=== PATIENT | female | born 1980 | race Caucasian/White ===

== ENCOUNTER 2016-08-09 12:28 | Emergency (ER) | payer OTHER ==
[2016-08-09 13:29] VITALS: BP 140/99
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
== END 2016-08-09 13:20 | disposition home or self-care (01) ==
LOC: ED 12:28
DX: T75.4XXA Electrocution, initial encounter (principal); W86.8XXA Exposure to other electric current, initial encounter; Y93.89 Activity, other specified; Y92.89 Other specified places as the place of occurrence of the external cause; Y99.0 Civilian activity done for income or pay
CPT/HCPCS: 99283

== ENCOUNTER 2016-11-09 12:27 | Emergency (ER) | payer SELFPAY ==
--- NOTE | 2016-11-09 12:44 | ED Physician Documentation ---
General Adult - HISTORIAN Historian: patient - HPI Stated Complaint: dental pain Chief Complaint: General Adult Onset: days ago (1) Timing: still present Severity: moderate Further Comments: yes (Pt is a 36 yo female with dental pain. Pt fractured a lower R molar. Pt has appt to see dentist next week.) - ROS CONST: no problems EYES/ENT: other (dental pain) CVS/RESP: none GI/: none MS/SKIN/LYMPH: none - PAST HX Past History: hypertension Allergies/Adverse Reactions: Allergies Allergy/AdvReac Type Severity Reaction Status Date / Time No Known Allergies Allergy Verified 11/09/16 12:41 Home Medications: Ambulatory Orders Medication Instructions Recorded Levothyroxine Sodium [Synthroid] 175 mcg PO DAILY 04/14/15 Gabapentin [Neurontin] 300 mg PO BID 11/09/16 Gabapentin [Neurontin] 600 mg PO HS 11/09/16 Hydrochlorothiazide [Hydrodiuril] 25 mg PO DAILY 11/09/16 - SOCIAL HX Smoking History: cigarettes - FAMILY HX Family History: No - VITAL SIGNS Vital Signs: Vital Signs Temp Pulse Resp BP Pulse Ox 140/99 08/09/16 13:28 - REVIEWED ASSESSMENTS Nursing Assessment Reviewed: Yes Vitals Reviewed: Yes Progress - Progress Progress: Rx Penicillin VK 500 mg. Take one every 8 hrs for 10 days. Rx [place] (5/325). Take one or two tablets by mouth every 4 to 6 hrs as needed for moderate to severe pain. Follow up with dentist as soon as possible. General Adult Physical Exam - PHYSICAL EXAM GENERAL APPEARANCE: mild distress EENT: pharynx normal, other (fx molar R lower jaw; tenderness) NECK: normal inspection RESPIRATORY: no resp distress BACK: normal inspection SKIN: warm/dry, normal color EXTREMITIES: non-tender, normal range of motion, no evidence of injury NEURO: oriented X3, motor nml, sensation nml Discharge Clincal Impression: dental pain Referrals: Prashant Carlos MD [Primary Care Provider] - Home Medications: Ambulatory Orders Levothyroxine Sodium [Synthroid] 175 mcg PO DAILY 04/14/15 Gabapentin [Neurontin] 300 mg PO BID 11/09/16 Gabapentin [Neurontin] 600 mg PO HS 11/09/16 Hydrochlorothiazide [Hydrodiuril] 25 mg PO DAILY 11/09/16 Condition: Good Disposition: 01 HOME, SELF-CARE Decision to Admit: NO Decision Time: 13:12
[2016-11-09 13:09] VITALS: BP 148/118
== END 2016-11-09 13:00 | disposition home or self-care (01) ==
LOC: ED 12:27
DX: K08.89 Other specified disorders of teeth and supporting structures (principal)
CPT/HCPCS: 99283

== ENCOUNTER 2017-12-24 16:38 | Emergency (ER) | payer SELFPAY ==
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
[2017-12-24 18:30] VITALS: BP 179/111
[2017-12-24] MEDS: KETOROLAC TROMETHAMINE 60 MG/2 ML VIAL IM ONE (18:32)
[2017-12-24] MEDS: CloNIDine HCL 0.1 MG TABLET PO ONE (18:32)
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
== END 2017-12-24 18:28 | disposition home or self-care (01) ==
LOC: ED 16:38
DX: M54.2 Cervicalgia (principal)
CPT/HCPCS: 72040; 99283

== ENCOUNTER 2018-04-12 16:36 | Emergency (ER) | payer SELFPAY ==
--- NOTE | 2018-04-12 17:05 | ED Physician Documentation ---
General Adult - HISTORIAN Historian: patient - HPI Stated Complaint: Tooth pain Chief Complaint: General Adult Onset: days ago (4) Timing: still present Severity: moderate Further Comments: yes (Pt is a 38 yo female with dental pain. Pt has had toothache for 4 days. It is keeping her up at night. Pain radiates to R ear. Pain is in both upper and lower R jaw.) - ROS CONST: no problems EYES/ENT: other (dental pain) CVS/RESP: none GI/: none MS/SKIN/LYMPH: none - PAST HX Past History: none Allergies/Adverse Reactions: Allergies Allergy/AdvReac Type Severity Reaction Status Date / Time No Known Allergies Allergy Verified 12/24/17 16:55 Home Medications: Ambulatory Orders Medication Instructions Recorded NK 12/24/17 - SOCIAL HX Smoking History: cigarettes - FAMILY HX Family History: No - VITAL SIGNS Vital Signs: Vital Signs Temp Pulse Resp BP Pulse Ox 98.2 F 110 H 16 145/115 99 04/12/18 16:56 04/12/18 16:56 04/12/18 16:56 04/12/18 16:56 04/12/18 16:56 - REVIEWED ASSESSMENTS Nursing Assessment Reviewed: Yes Vitals Reviewed: Yes Progress - Progress Progress: Rx Penicillin VK 500 mg. Take one every 8 hours for 10 days. One refill. Rx [place] (5/325). Take one or two tablets by mouth every 4 to 6 hours as needed for moderate to severe pain. General Adult Physical Exam - PHYSICAL EXAM GENERAL APPEARANCE: moderate distress EENT: pharynx normal, other (poor dentition, caries in R upper and lower molars) NECK: normal inspection, supple, lymphadenopathy (mild) RESPIRATORY: no resp distress, chest non-tender, breath sounds normal CVS: reg rate & rhythm, heart sounds normal BACK: normal inspection, no CVA tenderness SKIN: warm/dry, normal color EXTREMITIES: non-tender, normal range of motion, no evidence of injury NEURO: oriented X3, motor nml, sensation nml Discharge Clincal Impression: Pain, dental Referrals: Christina Bains FNP [Primary Care Provider] - Condition: Stable Disposition: HOME, SELF-CARE Decision to Admit: NO Decision Time: 17:15
[2018-04-12] MEDS ORDERED: HYDROcodone /APAP 5/325 1 EACH TABLET PO ONE (17:32)
[2018-04-12 19:13] VITALS: BP 134/103
== END 2018-04-12 18:48 | disposition home or self-care (01) ==
LOC: ED 16:36
DX: K08.89 Other specified disorders of teeth and supporting structures (principal); Z72.0 Tobacco use
CPT/HCPCS: 99281; 99282; A9270

== ENCOUNTER 2018-05-06 18:06 | Emergency (ER) | payer SELFPAY ==
[2018-05-06] MEDS ORDERED: ASPIRIN 81 MG CHEW TAB PO ONE ×2 (18:16→18:20)
[2018-05-06] MEDS ORDERED: METOPROLOL TARTRATE 5 MG/5 ML VIAL IV ONE ×2 (18:20→20:43)
[2018-05-06 18:40] LABS: MEAN CORPUSCULAR HEMOGLOBIN 32.8 pg (28.0-34.0)
[2018-05-06 18:41] LABS: BASOPHILS % 0.7 (0.0-1.5); EOSINOPHILS % 3.8 % (0.0-6.8); MONOCYTES % 7.3 % (0.0-11.0); NEUTROPHILS # 7.1 # k/uL (1.4-7.7)
[2018-05-06 18:44] LABS: eGFR (Non-African) > 60
[2018-05-06] MEDS ORDERED: 0.9 % SODIUM CHLORIDE 1,000 ML IV ONE ×3 (18:47→18:48)
--- NOTE | 2018-05-06 18:55 | Diagnostic Imaging Report ---
YANELY SMITH (SALON PROFESSIONAL) - ER [facility] [address] [facility] [address] [place], [place]. [address] Report Submission Date: May 06, 2018 6:54:04 PM DENTAL TECH Patient Study Name: REYMUNDO ROOT Date: May 06, 2018 6:36:43 PM DENTAL TECH Modality Type: DX Gender: F Description: CHEST 2VIEW : 82 Institution: [facility] Physician: YANELY SMITH (SALON PROFESSIONAL) - ER CHEST 2VIEW CLINICAL HISTORY: chest pain, dizziness, fever x 3-4 days. current 1 ppd smoker. pt denies chance of and was shielded in xray room for exam. (Hx) COMPARISON: None FINDINGS: A granuloma is noted in the right lower lobe. There is no focal consolidation, pleural effusion, or pneumothorax. The cardiomediastinal silhouette is normal. The visible bony thorax is intact. IMPRESSION: No acute pulmonary process. Electronically signed on May 06, 2018 6:54:04 PM DENTAL TECH by: Dereck AYERS
[2018-05-06] MEDS ORDERED: hydrALAZINE HCL 20 MG/1 ML IVP ONE ×2 (18:59→19:26)
[2018-05-06] MEDS ORDERED: LORazepam 2 MG/ML VIAL IV ONE (20:31)
--- NOTE | 2018-05-06 20:34 | ED Physician Documentation ---
General Adult - HISTORIAN Historian: patient - HPI Stated Complaint: Chest Pain Chief Complaint: General Adult Further Comments: yes (38 year old female patient presents with complaint of chest pain which has been "going on all day" and intermittently the past 2 days; patient denies SOB, N/V or diaphoresis. States she does not take her antihypertensive medications, has been off of them "a long time". Reports not taking her thyroid medication as well. Reports having multiple missing teeth, "I need to have them pulled". BP 177/124 on arrival with HR 110) - ROS CONST: no problems EYES/ENT: sore throat, nasal drainage CVS/RESP: chest pain GI/: none MS/SKIN/LYMPH: other (neck pain) NEURO/PSYCH: headache - PAST HX Past History: hypertension, other (hypothyroidism) Allergies/Adverse Reactions: Allergies Allergy/AdvReac Type Severity Reaction Status Date / Time No Known Allergies Allergy Verified 05/06/18 18:24 Home Medications: Ambulatory Orders Medication Instructions Recorded NK 12/24/17 - SOCIAL HX Smoking History: cigarettes - FAMILY HX Family History: No - VITAL SIGNS Vital Signs: Vital Signs Temp Pulse Resp BP Pulse Ox 98.6 F 100 H 22 177/124 100 05/06/18 18:10 05/06/18 19:15 05/06/18 18:10 05/06/18 18:31 05/06/18 19:14 - REVIEWED ASSESSMENTS Nursing Assessment Reviewed: Yes Vitals Reviewed: Yes Progress - Progress Progress: BP down to 141/97 after a total of Hylazine 20mg, Lopressor 10 mg IV and ativan 1 mg. Patient cannot recall what BP or thyroid medication she is suppose to take. Reports she took her last hydrocodone at 1400; UDS is positive for marijuana, hydrocodone and opiates. Lab and EKG reviewed with patient; recommend transfer to higher level of care for further evaluation and treatment of hypertension. Patient prefers [facility]. Call to [facility] - patient accepted by Dr Dewey ED Results Lab/Radiology - Lab Results Lab Results: Lab Results 05/06/18 05/06/18 05/06/18 18:15 18:15 18:15 WBC 10.90 K/ul K/ul (4.00-12.00) RBC 3.75 M/ul L M/ul (3.90-5.20) Hgb 12.3 g/dL g/dL (12.0-16.0) Hct 36.8 % % (34.5-46.5) MCV 98.0 fl fl (80.0-100.0) MCH 32.8 pg pg (28.0-34.0) MCHC 33.4 g/dL g/dL (30.0-36.0) RDW 18.0 % H % (11.3-14.3) Plt Count 385 K/mm3 K/mm3 (130-400) Neut % (Auto) 64.7 % % (39.0-79.0) Lymph % (Auto) 23.5 % % (16.0-50.0) [place] % (Auto) 7.3 % % (0.0-11.0) Eos % (Auto) 3.8 % % (0.0-6.8) Baso % (Auto) 0.7 (0.0-1.5) Neut # (Auto) 7.1 # k/uL # k/uL (1.4-7.7) Lymph # (Auto) 2.6 # k/uL # k/uL (0.6-4.0) [place] # (Auto) 0.8 # k/uL # k/uL (0.0-0.9) Eos # (Auto) 0.4 # k/uL # k/uL (0.0-0.6) Baso # (Auto) 0.1 # k/uL # k/uL (0.0-0.5) Sodium 137 mmol/L mmol/L (136-145) Potassium 3.6 mmol/L mmol/L (3.5-5.1) Chloride 99 mmol/L mmol/L (98-107) Carbon Dioxide 28 mmol/L mmol/L (22-30) BUN 11 mg/dL mg/dL (7-17) Creatinine 1.12 mg/dL H mg/dL (0.52-1.04) Estimated Creat Clear 83 Est GFR ( Amer) > 60 (60 - ) Est GFR (Non-Af Amer) > 60 (60 - ) Glucose 93 mg/dL mg/dL (74-106) Calcium 9.2 mg/dL mg/dL (8.4-10.2) Total Bilirubin 0.4 mg/dL mg/dL (0.2-1.3) AST 59 U/L H U/L (15-46) ALT 29 U/L U/L (13-69) Alkaline Phosphatase 67 U/L U/L (38-126) Troponin I < 0.03 ng/mL L ng/mL (0.03-0.06) Total Protein 7.5 g/dL g/dL (6.3-8.2) Albumin 4.9 g/dL g/dL (3.5-5.0) - Radiology Radiology Impressions: CT BRAIN W/O CONTRAST CLINICAL HISTORY: HEADACHE X3 WEEKS TECHNIQUE: CT of the head was performed without contrast according to standard protocol. COMPARISON: None FINDINGS: No acute intra- or extra-axial fluid collections are identified. The ventricles are of normal size, shape, and morphology. The basilar cisterns are patent. No mass effect or midline shift is seen. The fontanez-white matter differentiation is normal. The visible portions of the orbits, paranasal sinuses, and mastoids appear normal. No acute fracture is identified. IMPRESSION: No acute intracranial process. Electronically signed on May 06, 2018 8:08:43 PM [employer] by: Dereck Cosme CHEST 2VIEW CLINICAL HISTORY: chest pain, dizziness, fever x 3-4 days. current 1 ppd smoker. pt denies chance of and was shielded in xray room for exam. (Hx) COMPARISON: None FINDINGS: A granuloma is noted in the right lower lobe. There is no focal consolidation, pleural effusion, or pneumothorax. The cardiomediastinal silhouette is normal. The visible bony thorax is intact. IMPRESSION: No acute pulmonary process. Electronically signed on May 06, 2018 6:54:04 PM [employer] by: Dereck Cosme - Orders Orders: ED Orders Category Date Time Status Continuous EKG monitoring Q30M Care 05/06/18 18:15 Active Continuous Pulse Oximetry Q30M Care 05/06/18 18:[address] IV Lock 1T Care 05/06/18 18:14 Active CHEST 2VIEW [RAD] Stat Exams 05/06/18 18:[address] BRAIN W/O CONTRAST Stat Exams 05/06/18 Taken CBC/PLATELET/DIFF Stat Lab 05/06/18 18:15 Completed CMP Stat Lab 05/06/18 18:15 Completed TROPONIN I (cTnI) Stat Lab 02/25/19 18:15 Completed UA W/MICRO IF INDICATED Stat Lab 05/06/18 18:14 Ordered URINE HCG Stat Lab 05/06/18 19:29 Ordered Urine drug screen [DRUG SCREEN URINE MEDICAL ONLY] Stat Lab 05/06/18 18:21 Ordered 0.9 % Sodium Chloride [Normal Saline] 1,000 ml Med 05/06/18 18:47 Discontinued IV .STK-MED 0.9 % Sodium Chloride [Normal Saline] 1,000 ml Med 05/06/18 18:47 Discontinued IV NOW 0.9 % Sodium Chloride [Normal Saline] 1,000 ml Med 05/06/18 18:48 Discontinued IV NOW Aspirin [Rhoda] Med 05/06/18 18:16 Discontinued 324 mg PO NOW ONE Aspirin [Rhoda] Med 05/06/18 18:20 Discontinued 324 mg PO NOW ONE LORazepam [Ativan] Med 05/06/18 20:31 Once 1 mg IV NOW ONE Metoprolol Tartrate [Lopressor] Med 05/06/18 18:20 Discontinued 5 mg IV NOW ONE hydrALAZINE HCL [Apresoline] Med 05/06/18 18:59 Discontinued 10 mg IVP NOW ONE hydrALAZINE HCL [Apresoline] Med 05/06/18 19:26 Discontinued 10 mg IVP NOW ONE Oxygen Daily Oxygen 05/06/18 18:30 Ordered EKG WITH COMPARISON Routine Ther 05/06/18 Completed EKG WITH COMPARISON Stat Ther 05/06/18 19:26 Ordered General Adult Physical Exam - PHYSICAL EXAM GENERAL APPEARANCE: anxious, tearful and crying EENT: eye inspection normal, ENT inspection normal, pharynx normal, no signs of dehydration, NALINI, no nystagmus, TM's nml, other (widespread decay) CVS: heart sounds normal, equal pulses, no murmur, no gallop, PMI nml, no JVD, no friction rub, tachycardia ABDOMEN: soft, no organomegaly, normal bowel sounds, no abdominal bruit, no distension SKIN: normal color, warm/dry, NR, INT, PAL, DR EXTREMITIES: non-tender, normal range of motion, no evidence of injury, 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
[2018-05-06 20:48] LABS: APPEARANCE,URINE CLEAR (CLEAR); COLOR,URINE YELLOW (YELLOW); OCCULT BLOOD,URINE NEGATIVE (NEGATIVE); PH URINE 6.5 (5.0 - 8.0); UROBILINOGEN URINE 0.2 Eu (0.2-1.0)
[2018-05-06 20:49] LABS: CANNABINOIDS NON NEGATIVE ng/mL (< 50)
[2018-05-06 20:50] LABS: METHYLENEDIOXYMETHAMPHETAMINE NEGATIVE ng/mL (<500)
[2018-05-06] MEDS ORDERED: KETOROLAC TROMETHAMINE 30 MG/1ML VIAL IVP ONE (21:06)
[2018-05-06 22:27] VITALS: BP 139/76
--- NOTE | 2018-05-07 05:38 | Diagnostic Imaging Report ---
YANELY SMITH (MANAGER MULTICULTURAL) - ER [facility] [address] [facility] [address] [place], [place]. [address] Report Submission Date: May 06, 2018 8:08:43 PM PLASTICS HEAT WELDER Patient Study Name: REYMUNDO ROOT Date: May 06, 2018 7:50:45 PM PLAST[employer] HEAT WELDER Modality Type: CT\SR Gender: F Description: CT BRAIN W/O CONTRAST : 82 Institution: [facility] Physician: YANELY SMITH) - ER CT BRAIN W/O CONTRAST CLINICAL HISTORY: HEADACHE X3 WEEKS TECHNIQUE: CT of the head was performed without contrast according to standard protocol. COMPARISON: None FINDINGS: No acute intra- or extra-axial fluid collections are identified. The ventricles are of normal size, shape, and morphology. The basilar cisterns are patent. No mass effect or midline shift is seen. The fontanez-white matter differentiation is normal. The visible portions of the orbits, paranasal sinuses, and mastoids appear normal. No acute fracture is identified. IMPRESSION: No acute intracranial process. Electronically signed on May 06, 2018 8:08:43 PM PLASTICS HEAT WELDER by: Dereck AYERS
== END 2018-05-06 21:50 | disposition short-term general hospital (02) ==
LOC: ED 18:06
DX: I16.9 Hypertensive crisis, unspecified (principal); R93.1 Abnormal findings on diagnostic imaging of heart and coronary circulation; F41.9 Anxiety disorder, unspecified; K02.9 Dental caries, unspecified; F19.10 Other psychoactive substance abuse, uncomplicated; Z72.0 Tobacco use
CPT/HCPCS: 36415; 70450; 71046; 80053; 80377; 81002; 81025; 84484; 85025; 96374; 96375; 96376; 99285; J0360; J1885; J2060; J3490; G0481; J7030; S1016

== ENCOUNTER 2018-07-23 13:40 | Emergency (ER) | payer SELFPAY ==
--- NOTE | 2018-07-23 14:25 | ED Physician Documentation ---
Sore Throat/Dental Pain - HISTORIAN Historian: patient - HPI Chief Complaint: Dental Pain Additional Information: multi dental caries upper lower and bilateral Onset: days ago (several) Context: Fractured Tooth, Dental Caries Associated Symptoms: denies: fever, chills, sore throat Worsened By: heat, cold - ROS CONST: no problems CVS/RESP: none GI/: nausea. denies: problems urinating, vomiting NEURO/PSYCH: none - PAST HX Past History: other (hypo thryoid) Allergies/Adverse Reactions: Allergies Allergy/AdvReac Type Severity Reaction Status Date / Time No Known Allergies Allergy Verified 07/23/18 14:21 Home Medications: Ambulatory Orders Medication Instructions Recorded NK 12/24/17 - SOCIAL HX Smoking History: cigarettes, greater than 1 pack/day Alcohol Use: none Drug Use: none - FAMILY HX Family History: No - VITAL SIGNS Vital Signs: Vital Signs Temp Pulse Resp BP Pulse Ox 139/76 05/06/18 22:15 - REVIEWED ASSESSMENTS Nursing Assessment Reviewed: Yes Vitals Reviewed: Yes Dental Pain Physical Exam - EXAM General Appearance: mild distress, moderate distress Head/Neck: head nml inspection Eyes: eyes nml inspection Mouth/Throat: gums nml, pharynx nml, voice nml, no thrush, dental tenderness, widespread dental decay Ear/Nose: No: TM erythema Respiratory: no resp. distress, breath sounds nml CVS: reg. rate & rhythm, heart sounds nml Abdomen: soft, non-tender Extremities: non-tender Skin: warm/dry, normal color. No: cyanosis, diaphoresis Neuro/Psych: none Discharge Clincal Impression: does not tolerate ultram-co nt ibu tylenol Referrals: Primary Doctor,No [Primary Care Provider] - 2 Days Comments: counceled on cigarettes and dental hygiene and dental care Condition: Good Disposition: 01 HOME, SELF-CARE Decision to Admit: NO Decision Time: 14:29
[2018-07-23 14:39] VITALS: BP 110/71
== END 2018-07-23 14:26 | disposition home or self-care (01) ==
LOC: ED 13:40
DX: K02.9 Dental caries, unspecified (principal); Z72.0 Tobacco use
CPT/HCPCS: 99281